=== PATIENT | male | born 1985 | race Two or more races ===

== ENCOUNTER 2019-04-07 16:51 | Inpatient (IN) | payer OTHER ==
[2019-04-07 18:20] VITALS: BMI 25.7
--- NOTE | 2019-04-07 20:20 | HP ---
COWS - Scale Resting Pulse: 1= [place] 81-100 Sweatin=Flushed/Facial Moisture Restless Observation: 1= Difficult to Sit Still Pupil Size: 1= Pupils >than Normal Bone or Joint Aches: 2= Severe Diffuse Aches Runny Nose/ Eye Tearin= Nasal Congestion GI Upset > 30mins: 1= Stomach Cramp Tremor Observation: 4= Gross Tremor/Twitching Yawning Observation: 0= None Anxiety or Irritability: 1=Feels Anxious/Irritable Goose Flesh Skin: 0=Smooth Skin COWS Score: 14 CIWA Score Nausea/Vomitin Muscle Tremors: 5 Anxiety: 2 Agitation: 2 Paroxysmal Sweats: 3 Orientation: 0-Oriented Tacttile Disturbances: 3-Moderate Itch/Numb/Burn Auditory Disturbances: 2-Mild Harshness/Frighten Visual Disturbances: 2-Mild Sensitivity Headache: 2-Mild CIWA-Ar Total Score: 24 - Admission Criteria OASAS Guidelines: Admission for Medically Managed Detox: Requires at least one of the followin. CIWA greater than 12 2. Seizures within the past 24 hours 3. Delirium tremens within the past 24 hours 4. Hallucinations within the past 24 hours 5. Acute intervention needed for co occurring medical disorder 6. Acute intervention needed for co occurring psychiatric disorder 7. Severe withdrawal that cannot be handled at a lower level of care (continued vomiting, continued diarrhea, abnormal vital signs) requiring intravenous medication and/or fluids 8. Admitting History and Physical - Admission History Source: Patient Limitations to Obtaining History: No Limitations - Past Surgical History Past Surgical History: Yes: None - Alcohol/Substance Use Hx Alcohol Use: No Admission ROS BHS - HPI Chief Complaint: DEPENDENT ON HEROIN AND XANAX Allergies/Adverse Reactions: Allergies Allergy/AdvReac Type Severity Reaction Status Date / Time Penicillins Allergy Intermediate Hives Verified 04/07/19 17:16 History of Present Illness: THE PT. IS REQUESTING ADMISSION TO THE DETOX UNIT AND CAME FOR MEDICAL CLEARANCE Exam Limitations: No Limitations - Ebola screening Have you traveled outside of the country in the last 21 days: No (N) Have you had contact with anyone from an Ebola affected area: No Do you have a fever: No - Review of Systems Constitutional: See HPI, Malaise, Weakness EENT: reports: See HPI Respiratory: reports: See HPI Cardiac: reports: See HPI GI: reports: See HPI, Nausea, Abdominal cramping : reports: See HPI Musculoskeletal: reports: See HPI, Muscle Pain, Muscle Weakness Integumentary: reports: See HPI, Flushing, Sweating Neuro: reports: See HPI, Headache, Tremors, Weakness Endocrine: reports: See HPI Hematology: reports: See HPI Psychiatric: reports: Judgement Intact, Orientated x3, Anxious, Depressed Patient History - Patient Medical History Hx Seizures: No Hx Human Immunodeficiency Virus (HIV): No Hx Hepatitis C: No Hx Depression: No Hx Suicide Attempt: No Other Medical History: ANXIETY DISORDER - Patient Surgical History Past Surgical History: No - Smoking Cessation Smoking history: Current every day smoker Have you smoked in the past 12 months: Yes Aproximately how many cigarettes per day: 30 Hx Chewing Tobacco Use: No Initiated information on smoking cessation: Yes 'Breaking Loose' booklet given: 04/07/19 - Substances abused Heroin Substance route: Smoking Frequency: Daily Amount used: 30 bags Age of first use: 27 Date of last use: 04/07/19 Alprazolam (Xanax) Substance route: Oral Frequency: 3-6 times per week Amount used: 6mg Age of first use: 21 Date of last use: 04/07/19 Admission Physical Exam BHS - Vital Signs Vital Signs: Vital Signs - 24 hr 04/07/19 04/07/19 17:23 17:32 Temperature 97.8 F 97.8 F Pulse Rate 95 H 95 H Respiratory 18 18 Rate Blood Pressure 137/76 137/76 - Physical General Appearance: Yes: No Apparent Distress, Nourished, Appropriately Dressed , Tremorous, Sweating, Anxious HEENTM: Yes: Hearing grossly Normal, Normocephalic, Normal Voice, GELA, Pharynx Normal Respiratory: Yes: Chest Non-Tender, Lungs Clear, Normal Breath Sounds, No Respiratory Distress, No Accessory Muscle Use Neck: Yes: No masses,lesions,Nodules, Supple, Trachea in good position Breast: Yes: Breast Exam Deferred, Axillae without masses Cardiology: Yes: Regular Rhythm, S1, S2, Tachycardia Abdominal: Yes: Normal Bowel Sounds, Non Tender, Soft, Protuberent Back: Yes: Normal Inspection Musculoskeletal: Yes: full range of Motion, Gait Steady, Pelvis Stable, Muscle Pain, Muscle weakness Extremities: Yes: Normal Capillary Refill, Normal Range of Motion, Non-Tender, Tremors 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, Fully Oriented, Alert, Motor Strength 5/5, Normal Response, Depressed Affect Integumentary: Yes: Warm, Moist Lymphatic: Yes: Within Normal Limits - Diagnostic (1) Heroin dependence Current Visit: Yes Status: Chronic (2) Benzodiazepine dependence Current Visit: Yes Status: Chronic (3) Anxiety disorder Current Visit: Yes Status: Chronic Qualifiers: Anxiety disorder type: generalized anxiety disorder Qualified Code(s): F41.1 - Generalized anxiety disorder (4) Nicotine dependence Current Visit: Yes Status: Chronic Qualifiers: Nicotine product type: cigarettes Substance use status: uncomplicated Qualified Code(s): F17.210 - Nicotine dependence, cigarettes, uncomplicated Cleared for Admission S - Detox or Rehab [facility] Level of Care: Medically Managed Detox Regimen/Protocol: Methadone/Valium Breathalyzer - Breathalyzer Breathalyzer: 0 Urine Drug Screen - Test Device Lot number: [id number] Expiration date: 11/28/20 - Control Is test valid?: Yes - Results Drug screen NEGATIVE: No Urine drug screen results: FEN-Fentanyl, MOP-Opiates Inpatient Rehab Admission - Rehab Decision to Admit Inpatient rehab admission?: No
[2019-04-07] MEDS ORDERED: MAGNESIUM CITRATE 300 ML BOTTLE PO PRN (20:25)
[2019-04-07] MEDS ORDERED: cloNIDine HCL 0.1 MG TABLET PO PRN (20:25)
[2019-04-07] MEDS ORDERED: MENTHOL/PHENOL 1 EACH UD MM PRN (20:25)
[2019-04-07] MEDS ORDERED: METHADONE HCL 10 MG TABLET (FOR DETOX USE ONLY) PO ONE (20:25)
[2019-04-07] MEDS ORDERED: hydrOXYzine PAMOATE 25 MG CAPSULE (FP) PO PRN (20:25)
[2019-04-07] MEDS ORDERED: IBUPROFEN 400 MG TABLET (FP) PO PRN (20:25)
[2019-04-07] MEDS ORDERED: METHOCARBAMOL 500 MG TABLET PO PRN (20:25)
[2019-04-07] MEDS ORDERED: ACETAMINOPHEN 325 MG TABLET (FP) PO PRN ×2 (20:25)
[2019-04-07] MEDS ORDERED: MAG HYDROX/AL HYDROX/SIMETH 30 ML UNIT-DOSE CUP PO PRN (20:25)
[2019-04-07] MEDS ORDERED: MAGNESIUM HYDROX 2400MG/30ML ORAL SUSPENSION 30 ML CUP PO PRN (20:25)
[2019-04-07] MEDS ORDERED: BISMUTH SUBSALICYLATE 524 MG/30 ML UD PO PRN (20:25)
[2019-04-07] MEDS ORDERED: diazePAM 5 MG TABLET PO ONE (20:25)
[2019-04-07] MEDS ORDERED: PATIENT'S OWN MEDICATION (NON-FORMULARY) (Paroxetine Hcl [Paroxetine Hcl] 40 MG) PO SCH (20:30)
[2019-04-07] MEDS ORDERED: hydrOXYzine PAMOATE 50 MG CAPSULE (FP) PO PRN (20:31)
[2019-04-07] MEDS: THIAMINE HCL 100 MG TABLET (FP) PO SCH (21:43)
[2019-04-07] MEDS: GABAPENTIN 300 MG CAPSULE (FP) PO SCH (21:43)
[2019-04-07] MEDS: PARoxetine HCL 20 MG TABLET PO SCH (21:56)
[2019-04-07] MEDS: diazePAM 5 MG TABLET PO SCH (22:47)
[2019-04-07] MEDS: NICOTINE POLACRILEX 4 MG GUM BUC PRN (23:48)
[2019-04-08] MEDS: diazePAM 5 MG TABLET PO SCH ×3 (05:33→22:06)
[2019-04-08] MEDS ORDERED: METHADONE HCL 10 MG TABLET (FOR DETOX USE ONLY) ONE (09:26)
[2019-04-08] MEDS ORDERED: METHADONE HCL 5 MG TABLET (FOR DETOX USE ONLY) ONE (09:27)
[2019-04-08] MEDS ORDERED: METHADONE (DETOX) 20 MG, METHADONE (DETOX) 5 MG PO ONE (10:00)
[2019-04-08] MEDS: PRENATAL VITAMINS W/ FOLIC ACID TABLET (FP) PO SCH (10:19)
[2019-04-08] MEDS: NICOTINE 21 MG/24 HOURS TOPICAL PATCH TD SCH (10:19)
[2019-04-08] MEDS: PARoxetine HCL 20 MG TABLET PO SCH (10:19)
[2019-04-08] MEDS: NICOTINE POLACRILEX 4 MG GUM BUC PRN ×3 (10:20→20:20)
--- NOTE | 2019-04-08 10:30 | PN ---
S CIWA - CIWA Score Nausea/Vomitin-Mild Nausea/No Vomiting Muscle Tremors: 3 Anxiety: 3 Agitation: 1-Slight > Activity Paroxysmal Sweats: 1-Minimal Palms Moist Orientation: 1-Uncertain about Date Tacttile Disturbances: 1-Very Mild Itch/Numbness Auditory Disturbances: 1-Very Mild Visual Disturbances: 0-None Headache: 1-Very Mild CIWA-Ar Total Score: 13 BHS COWS - Scale Resting Pulse: 1= [place] 81-100 Sweatin= Chills/Flushing Restless Observation: 0= Sits Still Pupil Size: 1= Pupils >than Normal Bone or Joint Aches: 1= Mild Discomfort Runny Nose/ Eye Tearin= Nasal Congestion GI Upset > 30mins: 2= Nausea/Diarrhea Tremor Observation of Outstretched Hands: 2= Slight Tremor Visible Yawning Observation: 0= None Anxiety or Irritability: 1=Feels Anxious/Irritable Goose Flesh Skin: 3=Piloerection COWS Score: 13 S Progress Note (SOAP) Subjective: 33 years old male admitted on 04/07/19 for benzo and opiate withdrawal sx management treated with valium detox regimen feeling tired sleeping on bed limited conversation with staff Objective: 04/08/19 10:47 Vital Signs Temperature 97.8 F 04/08/19 09:13 Pulse Rate 82 04/08/19 09:13 Respiratory Rate 18 04/08/19 09:13 Blood Pressure 116/69 04/08/19 09:13 O2 Sat by Pulse Oximetry (%) 04/08/19 10:47 lab pending Assessment: 04/08/19 10:47 benzo and opiate withdrawal sx Plan: valium detox regimen
[2019-04-08 10:57] LABS: HEMATOCRIT 40.7 % (35.4-49); HEMOGLOBIN 13.5 GM/dL (11.7-16.9); MCH 28.5 pg (25.7-33.7); MCHC 33.1 g/dl (32.0-35.9); MEAN CELL VOLUME 86.2 fl (80-96); MEAN PLT VOLUME 9.3 fl (7.5-11.1); PLATELET COUNT 199 K/MM3 (134-434); RBC 4.72 M/mm3 (4.00-5.60); RDW 13.9 % (11.9-15.9); WHITE BLOOD COUNT 6.1 K/mm3 (4.0-10.0)
[2019-04-08 11:35] LABS: ALBUMIN 3.5 g/dl (3.4-5.0); BILIRUBIN,TOTAL 0.1 mg/dL (0.2-1); BLOOD UREA NITROGEN 16.5 mg/dL (7-18); CALCIUM 8.9 mg/dL (8.5-10.1); CREATININE 0.7 mg/dL (0.55-1.3); TOT PROT 6.2 g/dl (6.4-8.2)
--- NOTE | 2019-04-08 13:43 | EKG ---
Test Reason : Blood Pressure : / mmHG Vent. Rate : 071 BPM Atrial Rate : 071 BPM P-R Int : 148 ms QRS Dur : 104 ms QT Int : 390 ms P-R-T Axes : 032 058 048 degrees QTc Int : 423 ms NORMAL SINUS RHYTHM NORMAL ECG NO PREVIOUS ECGS AVAILABLE Confirmed by FRANCES ACOSTA MD ([id number]) on 04/08/2019 1:43:21 PM Referred By: THADDEUS Confirmed By:FRANCES ACOSTA MD
--- NOTE | 2019-04-08 16:34 | CONSULT ---
[facility] Psychiatric Consult - Data Date of interview: 04/08/19 Admission source: [facility] Identifying data: Patient is approached on TWO occasions for psychiatric interview. Mr Cartagena declines. " I am too tired now to talk to anyone. Can this wait for tomorrow ? I need to rest." Nursing staff is made aware. Order from the medical providers is needed for reconsult if deemed necessary.
[2019-04-08] MEDS: GABAPENTIN 300 MG CAPSULE (FP) PO SCH (22:06)
[2019-04-08] MEDS: MELATONIN 5 MG TABLETS PO PRN (22:07)
[2019-04-08] MEDS: THIAMINE HCL 100 MG TABLET (FP) PO SCH (22:07)
[2019-04-09] MEDS: diazePAM 5 MG TABLET PO SCH ×2 (05:37→17:33)
[2019-04-09] MEDS ORDERED: METHADONE HCL 10 MG TABLET (FOR DETOX USE ONLY) PO ONE (10:00)
[2019-04-09] MEDS: PARoxetine HCL 20 MG TABLET PO SCH (10:25)
[2019-04-09] MEDS: NICOTINE POLACRILEX 4 MG GUM BUC PRN ×2 (10:26→17:35)
[2019-04-09] MEDS: PRENATAL VITAMINS W/ FOLIC ACID TABLET (FP) PO SCH (10:26)
[2019-04-09] MEDS: NICOTINE 21 MG/24 HOURS TOPICAL PATCH TD SCH (10:26)
[2019-04-09] MEDS: diazePAM 5 MG TABLET PO PRN ×2 (10:30→22:13)
--- NOTE | 2019-04-09 12:25 | PN ---
S CIWA - CIWA Score Nausea/Vomitin-No Nausea/No Vomiting Muscle Tremors: 2 Anxiety: 2 Agitation: 2 Paroxysmal Sweats: 1-Minimal Palms Moist Orientation: 0-Oriented Tacttile Disturbances: 0-None Auditory Disturbances: 0-None Visual Disturbances: 0-None Headache: 1-Very Mild CIWA-Ar Total Score: 8 BHS COWS - Scale Resting Pulse: 0= [place] 80 or Below Sweatin= Chills/Flushing Restless Observation: 0= Sits Still Pupil Size: 0= Normal to Room Light Bone or Joint Aches: 1= Mild Discomfort Runny Nose/ Eye Tearin= Nasal Congestion GI Upset > 30mins: 1= Stomach Cramp Tremor Observation of Outstretched Hands: 2= Slight Tremor Visible Yawning Observation: 1= 1-2x During Session Anxiety or Irritability: 1=Feels Anxious/Irritable Goose Flesh Skin: 0=Smooth Skin COWS Score: 8 S Progress Note (SOAP) Subjective: 33 years old male admitted on 04/07/19 for benzo opiate withdrawal sx management treated with valium and methadone ate breakfast slept through the night feeling tired encourage the patient to attend groups and meetings Objective: 04/09/19 12:37 Vital Signs Temperature 97.7 F 04/09/19 09:14 Pulse Rate 77 04/09/19 09:14 Respiratory Rate 18 04/09/19 09:14 Blood Pressure 106/73 04/09/19 09:14 O2 Sat by Pulse Oximetry (%) Laboratory Last Values WBC 6.1 K/mm3 (4.0-10.0) 04/08/19 07:50 RBC 4.72 M/mm3 (4.00-5.60) 04/08/19 07:50 Hgb 13.5 GM/dL (11.7-16.9) 04/08/19 07:50 Hct 40.7 % (35.4-49) 04/08/19 07:50 MCV 86.2 fl (80-96) 04/08/19 07:50 MCH 28.5 pg (25.7-33.7) 04/08/19 07:50 MCHC 33.1 g/dl (32.0-35.9) 04/08/19 07:50 RDW 13.9 % (11.9-15.9) 04/08/19 07:50 Plt Count 199 K/MM3 (134-434) 04/08/19 07:50 MPV 9.3 fl (7.5-11.1) 04/08/19 07:50 Sodium 140 mmol/L (136-145) 04/08/19 07:50 Potassium 4.0 mmol/L (3.5-5.1) 04/08/19 07:50 Chloride 103 mmol/L (98-107) 04/08/19 07:50 Carbon Dioxide 32 mmol/L (21-32) 04/08/19 07:50 Anion Gap 6 MMOL/L (8-16) L 04/08/19 07:50 BUN 16.5 mg/dL (7-18) 04/08/19 07:50 Creatinine 0.7 mg/dL (0.55-1.3) 04/08/19 07:50 Est GFR (CKD-EPI)AfAm 144.72 04/08/19 07:50 Est GFR (CKD-EPI)NonAf 124.87 04/08/19 07:50 Random Glucose 88 mg/dL (74-106) 04/08/19 07:50 Calcium 8.9 mg/dL (8.5-10.1) 04/08/19 07:50 Total Bilirubin 0.1 mg/dL (0.2-1) L 04/08/19 07:50 AST 19 U/L (15-37) 04/08/19 07:50 ALT 34 U/L (13-61) 04/08/19 07:50 Alkaline Phosphatase 47 U/L (45-117) 04/08/19 07:50 Total Protein 6.2 g/dl (6.4-8.2) L 04/08/19 07:50 Albumin 3.5 g/dl (3.4-5.0) 04/08/19 07:50 RPR Titer Nonreactive (NONREACTIVE) 04/08/19 07:50 lab noted Assessment: 04/09/19 12:37 benzo opiate withdrawal Plan: valium and methadone regimen
--- NOTE | 2019-04-09 17:21 | CONSULT ---
[facility] Psychiatric Consult - Data Date of interview: 04/09/19 Admission source: [facility] Identifying data: First admission to [facility] for this 33 y/o [place]-born male self-referred for detoxification. LIUDMILA issues : opioid, nicotine. Interviewed at [address] [place] [address]. Patient is , father of two, domiciled and currently employed. Substance Abuse History: Discussed with the patient. Details in current [facility] report as follows. Smoking history: Current every day smoker. Have you smoked in the past 12 months: Yes. Aproximately how many cigarettes per day: 30. Hx Chewing Tobacco Use: No. Initiated information on smoking cessation: Yes. ' Breaking Loose' booklet given: 04/07/19. - Substances abused. Heroin. Substance route: Smoking. Frequency: Daily. Amount used: 30 bags. Age of first use: 27. Date of last use: 04/07/19. Alprazolam (Xanax). Substance route: Oral. Frequency: 3-6 times per week. Amount used: 6mg. Age of first use: 21. Date of last use: 04/07/19 Medical History: Patient endorses good general health. Psychiatric History: No reported history of psychiatric hospitalizations. Patient used to see a psychiatrist to address depression (prescribed paroxetine 40 mg/day). Mr Mitzi reports that his psychiatrist has since relocated, thus leaving him without a provider. In the meantime, the patient has relied on his primary care physician for medications refills. Diagnosed with MDD + TIMOTEO. Patient denies history of suicide attempts. Physical/Sexual Abuse/Trauma History: Patient denies. Additional Comment: Urine drug screen results: FEN-Fentanyl, MOP-Opiates. Noted. Mental Status Exam - Mental Status Exam Alert and Oriented to: Time, Place, Person Cognitive Function: Good Patient Appearance: Well Groomed Mood: Withdrawn, Hopeful Affect: Mood Congruent, Constricted Patient Behavior: Fatigued, Appropriate, Cooperative Speech Pattern: Clear, Appropriate Voice Loudness: Normal Thought Process: Intact, Goal Oriented Thought Disorder: Not Present Hallucinations: Denies Suicidal Ideation: Denies Homicidal Ideation: Denies Insight/Judgement: Poor Sleep: Well Appetite: Good Muscle strength/Tone: Normal Gait/Station: Normal Psychiatric Findings - Problem List ([place] 1, 2,3) (1) Heroin dependence Current Visit: Yes Status: Chronic (2) Benzodiazepine dependence Current Visit: Yes Status: Chronic (3) Nicotine dependence Current Visit: Yes Status: Chronic Qualifiers: Nicotine product type: cigarettes Substance use status: uncomplicated Qualified Code(s): F17.210 - Nicotine dependence, cigarettes, uncomplicated (4) Anxiety disorder Current Visit: Yes Status: Chronic Qualifiers: Anxiety disorder type: generalized anxiety disorder Qualified Code(s): F41.1 - Generalized anxiety disorder Comment: As per self-report. - Initial Treatment Plan Initial Treatment Plan: Psychoeducation. Sleep hygiene. Detoxification. NA meetings. Motivational counseling provided in this session. Continue Paxil 40 mg po daily. Side effects/benefits discussed with the patient. Mr Cartagena is in agreement with this plan of care. Gave berbal consent to MD. Shabazz.
[2019-04-09] MEDS: THIAMINE HCL 100 MG TABLET (FP) PO SCH (22:13)
[2019-04-09] MEDS: GABAPENTIN 300 MG CAPSULE (FP) PO SCH (22:13)
[2019-04-09] MEDS: MELATONIN 5 MG TABLETS PO PRN (22:14)
[2019-04-10] MEDS: NICOTINE POLACRILEX 4 MG GUM BUC PRN ×4 (05:23→22:21)
[2019-04-10] MEDS ORDERED: diazePAM 5 MG TABLET PO ONE (06:00)
[2019-04-10] MEDS ORDERED: METHADONE HCL 5 MG TABLET (FOR DETOX USE ONLY) ONE (08:06)
[2019-04-10] MEDS ORDERED: METHADONE HCL 10 MG TABLET (FOR DETOX USE ONLY) ONE (08:06)
[2019-04-10] MEDS ORDERED: METHADONE (DETOX) 10 MG, METHADONE (DETOX) 5 MG PO ONE (10:00)
[2019-04-10] MEDS: NICOTINE 21 MG/24 HOURS TOPICAL PATCH TD SCH (10:17)
[2019-04-10] MEDS: PARoxetine HCL 20 MG TABLET PO SCH (10:17)
[2019-04-10] MEDS: PRENATAL VITAMINS W/ FOLIC ACID TABLET (FP) PO SCH (10:17)
[2019-04-10] MEDS: diazePAM 5 MG TABLET PO PRN ×2 (10:21→17:25)
--- NOTE | 2019-04-10 11:50 | PN ---
[facility] CIWA - CIWA Score Nausea/Vomitin-No Nausea/No Vomiting Muscle Tremors: 2 Anxiety: 1-Mildly Anxious Agitation: 0-Normal Activity Paroxysmal Sweats: 1-Minimal Palms Moist Orientation: 0-Oriented Tacttile Disturbances: 0-None Auditory Disturbances: 0-None Visual Disturbances: 0-None Headache: 1-Very Mild CIWA-Ar Total Score: 5 BHS COWS - Scale Resting Pulse: 0= [place] 80 or Below Sweatin= Chills/Flushing Restless Observation: 0= Sits Still Pupil Size: 0= Normal to Room Light Bone or Joint Aches: 1= Mild Discomfort Runny Nose/ Eye Tearin= None GI Upset > 30mins: 1= Stomach Cramp Tremor Observation of Outstretched Hands: 1= Tremor [place], Not Seen Yawning Observation: 0= None Anxiety or Irritability: 1=Feels Anxious/Irritable Goose Flesh Skin: 0=Smooth Skin COWS Score: 5 S Progress Note (SOAP) Subjective: 33 years old male admitted on 04/07/19 for benzo and opiate withdrawal sx management treated with valium and methadone detox regimen feeling ok today ate breakfast enforce the benefit of medication assisted treatment program and carry narcan at all time Objective: 04/10/19 11:49 Vital Signs Temperature 96.8 F L 04/10/19 09:16 Pulse Rate 69 04/10/19 09:16 Respiratory Rate 18 04/10/19 09:16 Blood Pressure 113/64 04/10/19 09:16 O2 Sat by Pulse Oximetry (%) Laboratory Last Values WBC 6.1 K/mm3 (4.0-10.0) 04/08/19 07:50 RBC 4.72 M/mm3 (4.00-5.60) 04/08/19 07:50 Hgb 13.5 GM/dL (11.7-16.9) 04/08/19 07:50 Hct 40.7 % (35.4-49) 04/08/19 07:50 MCV 86.2 fl (80-96) 04/08/19 07:50 MCH 28.5 pg (25.7-33.7) 04/08/19 07:50 MCHC 33.1 g/dl (32.0-35.9) 04/08/19 07:50 RDW 13.9 % (11.9-15.9) 04/08/19 07:50 Plt Count 199 K/MM3 (134-434) 04/08/19 07:50 MPV 9.3 fl (7.5-11.1) 04/08/19 07:50 Sodium 140 mmol/L (136-145) 04/08/19 07:50 Potassium 4.0 mmol/L (3.5-5.1) 04/08/19 07:50 Chloride 103 mmol/L (98-107) 04/08/19 07:50 Carbon Dioxide 32 mmol/L (21-32) 04/08/19 07:50 Anion Gap 6 MMOL/L (8-16) L 04/08/19 07:50 BUN 16.5 mg/dL (7-18) 04/08/19 07:50 Creatinine 0.7 mg/dL (0.55-1.3) 04/08/19 07:50 Est GFR (CKD-EPI)AfAm 144.72 04/08/19 07:50 Est GFR (CKD-EPI)NonAf 124.87 04/08/19 07:50 Random Glucose 88 mg/dL (74-106) 04/08/19 07:50 Calcium 8.9 mg/dL (8.5-10.1) 04/08/19 07:50 Total Bilirubin 0.1 mg/dL (0.2-1) L 04/08/19 07:50 AST 19 U/L (15-37) 04/08/19 07:50 ALT 34 U/L (13-61) 04/08/19 07:50 Alkaline Phosphatase 47 U/L (45-117) 04/08/19 07:50 Total Protein 6.2 g/dl (6.4-8.2) L 04/08/19 07:50 Albumin 3.5 g/dl (3.4-5.0) 04/08/19 07:50 RPR Titer Nonreactive (NONREACTIVE) 04/08/19 07:50 lab noted Assessment: 04/10/19 11:49 benao and opiate withdrawal Plan: valium and methadone regimen
[2019-04-10] MEDS: THIAMINE HCL 100 MG TABLET (FP) PO SCH (22:16)
[2019-04-10] MEDS: GABAPENTIN 300 MG CAPSULE (FP) PO SCH (22:16)
[2019-04-10] MEDS: MELATONIN 5 MG TABLETS PO PRN (22:17)
[2019-04-11 09:51] VITALS: BP 104/67; PULSE 77; TEMP 98.9
[2019-04-11] MEDS ORDERED: METHADONE HCL 10 MG TABLET (FOR DETOX USE ONLY) PO ONE (10:00)
[2019-04-11] MEDS: PRENATAL VITAMINS W/ FOLIC ACID TABLET (FP) PO SCH (10:12)
[2019-04-11] MEDS: PARoxetine HCL 20 MG TABLET PO SCH (10:13)
[2019-04-11] MEDS: NICOTINE 21 MG/24 HOURS TOPICAL PATCH TD SCH (10:13)
[2019-04-11] MEDS: NICOTINE POLACRILEX 4 MG GUM BUC PRN (10:14)
--- NOTE | 2019-04-11 10:32 | DS ---
[facility] Detox Discharge Summary Admission Date: 04/07/19 Discharge Date: 04/11/19 - History Present History: Opioid Dependence, Sedative Dependence Additional Comments: 33 years old male admitted on 04/07/19 for benzo and opiate withdrawal sx management treated with valium and methadone detox regimen patient tolerated well alert oriented x 3 cardiac s1s2 regular rate rhythm respiratory clear lung bilaterally on auscultation extremities full range of motion Pertinent Past History: patient prefers to leave the detox unit today that he prefers suboxone maintenance program patient acknowledged that suboxone can be titrated up and mayo off when necessary patient understands life time commitment for addiction management - Physical Exam Results Vital Signs: Vital Signs Temperature 98.9 F 04/11/19 09:44 Pulse Rate 77 04/11/19 09:44 Respiratory Rate 18 04/11/19 09:44 Blood Pressure 104/67 04/11/19 09:44 O2 Sat by Pulse Oximetry (%) Pertinent Admission Physical Exam Findings: benzo and opiate withdrawal sx Laboratory Last Values WBC 6.1 K/mm3 (4.0-10.0) 04/08/19 07:50 RBC 4.72 M/mm3 (4.00-5.60) 04/08/19 07:50 Hgb 13.5 GM/dL (11.7-16.9) 04/08/19 07:50 Hct 40.7 % (35.4-49) 04/08/19 07:50 MCV 86.2 fl (80-96) 04/08/19 07:50 MCH 28.5 pg (25.7-33.7) 04/08/19 07:50 MCHC 33.1 g/dl (32.0-35.9) 04/08/19 07:50 RDW 13.9 % (11.9-15.9) 04/08/19 07:50 Plt Count 199 K/MM3 (134-434) 04/08/19 07:50 MPV 9.3 fl (7.5-11.1) 04/08/19 07:50 Sodium 140 mmol/L (136-145) 04/08/19 07:50 Potassium 4.0 mmol/L (3.5-5.1) 04/08/19 07:50 Chloride 103 mmol/L (98-107) 04/08/19 07:50 Carbon Dioxide 32 mmol/L (21-32) 04/08/19 07:50 Anion Gap 6 MMOL/L (8-16) L 04/08/19 07:50 BUN 16.5 mg/dL (7-18) 04/08/19 07:50 Creatinine 0.7 mg/dL (0.55-1.3) 04/08/19 07:50 Est GFR (CKD-EPI)AfAm 144.72 04/08/19 07:50 Est GFR (CKD-EPI)NonAf 124.87 04/08/19 07:50 Random Glucose 88 mg/dL (74-106) 04/08/19 07:50 Calcium 8.9 mg/dL (8.5-10.1) 04/08/19 07:50 Total Bilirubin 0.1 mg/dL (0.2-1) L 04/08/19 07:50 AST 19 U/L (15-37) 04/08/19 07:50 ALT 34 U/L (13-61) 04/08/19 07:50 Alkaline Phosphatase 47 U/L (45-117) 04/08/19 07:50 Total Protein 6.2 g/dl (6.4-8.2) L 04/08/19 07:50 Albumin 3.5 g/dl (3.4-5.0) 04/08/19 07:50 RPR Titer Nonreactive (NONREACTIVE) 04/08/19 07:50 lab noted 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 - Treatment Hospital Course: Detox Protocol Followed, Detoxed Safely, Responded well, Discharged Condition Good, Rehab Referral Accepted Patient has Accepted a Rehab Referral to: suboxone maintenance program - Medication Discharge Medications: Ambulatory Orders Clonazepam 0.5 mg PO TID 04/07/19 Gabapentin [Neurontin -] 300 mg PO HS 04/07/19 Paroxetine HCl 40 mg PO DAILY 04/07/19 Naloxone HCl [Narcan] 4 mg NS ASDIR PRN #1 spray 04/09/19 - Diagnosis (1) Substance induced mood disorder Current Visit: Yes Status: Suspected (2) Benzodiazepine dependence Current Visit: Yes Status: Acute (3) Heroin dependence Current Visit: Yes Status: Acute (4) Nicotine dependence Current Visit: Yes Status: Acute Qualifiers: Nicotine product type: cigarettes Substance use status: in withdrawal Qualified Code(s): F17.213 - Nicotine dependence, cigarettes, with withdrawal - AMA Did Patient Leave Against Medical Advice: No CIWA Score - CIWA Score Nausea/Vomitin-No Nausea/No Vomiting Muscle Tremors: 1-None Visible, but [place] Anxiety: 1-Mildly Anxious Agitation: 0-Normal Activity Paroxysmal Sweats: No Perspiration Orientation: 0-Oriented Tacttile Disturbances: 0-None Auditory Disturbances: 0-None Visual Disturbances: 0-None Headache: 0-None Present CIWA-Ar Total Score: 2 COWS (PN) - Opiate Withdrawal Resting Pulse: 0= [place] 80 or Below Sweatin= No chills or Flushing Restless Observation: 0= Sits Still Pupil Size: 0= Normal to Room Light Bone or Joint Aches: 0= None Runny Nose/ Eye Tearin= None GI Upset > 30mins: 0= None Tremor Observation of Outstretched Hands: 1= Tremor [place], Not Seen Yawning Observation: 1= 1-2x During Session Anxiety or Irritability: 0= None Goose Flesh Skin: 0=Smooth Skin COWS Score: 2
[2019-04-12] MEDS ORDERED: METHADONE HCL 5 MG TABLET (FOR DETOX USE ONLY) PO ONE (06:00)
== END 2019-04-11 11:18 | disposition home or self-care (01) | DRG 773 ==
LOC: YASAS 16:51 → Y3N 20:28
PROVIDERS: ADMIT Allergy & Immunology; ATTEND Allergy & Immunology
PROC: HZ2ZZZZ Detoxification Services for Substance Abuse Treatment (ICD-10-PCS; principal; 2019-04-07)
DX: F11.23 Opioid dependence with withdrawal (principal); F13.230 Sedative, hypnotic or anxiolytic dependence with withdrawal, uncomplicated; F17.210 Nicotine dependence, cigarettes, uncomplicated; F19.24 Other psychoactive substance dependence with psychoactive substance-induced mood disorder; F41.1 Generalized anxiety disorder; Z88.0 Allergy status to penicillin
CPT/HCPCS: 36415; 71046-TC-FY; 80053; 85027; 86593; 93005; 93010